=== PATIENT | female | born 1995 | race African-American/Black ===

== ENCOUNTER 2021-04-06 22:06 | Emergency (ER) | payer OTHER, SELFPAY ==
--- NOTE | 2021-04-06 22:16 | ED_ITS ---
HPI - Altered Mental Status General Chief Complaint: General Medical Stated Complaint: AMS Time Seen by Provider: 04/06/21 22:15 Source: patient and EMS Mode of arrival: EMS History of Present Illness HPI narrative: Patient diabetic [place] the car wash covered in vomitus was behaving strangely looking at the VAC for some time and sitting in the car for an hour seem like she been using some drugs but patient denies no signs of head injury POC on arrival was 222 according to patient she was very tired that is why this happened Related Data Allergies Allergy/AdvReac Type Severity Reaction Status Date / Time No Known Allergies Allergy Verified 04/06/21 22:16 Review of Systems Review of Systems: Yes all other systems are reviewed and are negative [facility] Past Medical History Medical History Diabetes Social History Social History Alcohol intake: never Patient Tobacco Use Status: Never used Tobacco Use of substances other than those prescribed or required for medical reasons: No Patient : No Physical Exam ED Vital Signs: Vital Signs - 24 hr 04/06/21 22:22 04/06/21 22:42 Temperature 98.3 F 98.3 F Pulse Rate 90 90 Respiratory Rate 16 16 Blood Pressure 137/76 137/72 Pulse Oximetry 99 99 BMI result Body Mass Index 28.0 Appearance: Alert. Oriented X3. No acute distress. Looks intoxicated Eyes: PERRLA, No Nystagmus ENT: Pharynx normal. Oral Mucosa moist Neck: Normal inspection. Neck supple. CVS: Normal heart rate and rhythm. Pulses normal. Respiratory: No respiratory distress. Equal air entry bilateral, no wheezing/rales/rhonchi Abdomen: Soft and nontender. Bowel sounds are present, Skin: Skin warm and dry. Normal skin color. Normal skin turgor. Neuro: Oriented X 3. No motor deficit. MDM - Altered Mental Status MDM Narrative Medical decision making narrative: Patient refused to give urine sample or blood for the testing patient's sister was at the bedside understood limitation of diagnosis states she wants to take her home Lab Data Labs: Lab Results 04/06/21 Range/Units 22:22 POC Glucose 222 H (60-115) mg/dL Discharge Plan Discharge Clinical Impression: Polysubstance abuse Patient Disposition: Home, Self-Care Instructions: Polysubstance Abuse (ED) Additional Instructions: Possible substance abuse Follow-up with your PCP/detox if any concerns
[2021-04-06 22:22] VITALS: BP 137/76; PULSE 90; RESP 16; TEMP 36.8; O2SAT 99; BMI 28.0
[2021-04-06 22:37] LABS: Glucose, Whole Blood 222 mg/dL (60-115)
[2021-04-06 22:42] VITALS: BP 137/72; PULSE 90; RESP 16; TEMP 36.8; O2SAT 99
--- NOTE | 2021-04-06 22:44 | PC.NURSE ---
pt alert and oriented to person and place, seems confused as to her situation prior to arriving at [facility] [place]. found by police ~ 1hr ago covered in vomit in her car parked at the vacuum station of a car wash. police had noticed her standing with vacuum an hour prior. vss, pt requested POC (222 @ [facility] hx of diabetes, pt takes insulin at home. denies taking any substances/alcohol. pt declines urine sample/further work up. NKA or other medical history per pt. spoke with sister who confirmed hx of diabetes and is coming to see pt/take her home once d/c.
== END 2021-04-06 23:35 | disposition home or self-care (01) ==
PROVIDERS: Emergency Provider Internal Medicine
DX: F19.10 Other psychoactive substance abuse, uncomplicated (principal); E11.9 Type 2 diabetes mellitus without complications; Z79.4 Long term (current) use of insulin
CPT/HCPCS: 82947; 99282; 99284